=== PATIENT | male | born 1970 | race Caucasian/White ===

== ENCOUNTER 2021-03-09 00:12 | Emergency (ER) | payer SELFPAY | END 2021-03-09 07:05 | disposition left against medical advice (07) | LOC: ER 00:12 | DX: M25.569 Pain in unspecified knee (principal); Z53.21 Procedure and treatment not carried out due to patient leaving prior to being seen by health care provider ==

== ENCOUNTER 2021-03-09 08:29 | Emergency (ER) | payer SELFPAY ==
[~2021-03-09] VITALS: Ht 175.3 cm; Wt 70.4 kg
[2021-03-09] MEDS ORDERED: IBUPROFEN 400 MG TABLET. PO ONE (09:15)
[2021-03-09] MEDS ORDERED: ACETAMINOPHEN 500 MG TABLET PO ONE (09:15)
[2021-03-09 09:30] VITALS: BP 146/88
--- NOTE | 2021-03-09 09:30 | PHYS DOC ---
Past Medical History Additional Past Medical Histor: Darier disease, brain tumor Past Surgical History: Other Additional Past Surgical Histo: dental, finger, cyst removal Adult General Chief Complaint Chief Complaint: KNEE INJURY HPI HPI The patient is a 51-year-old undomiciled male who presents for evaluation of chronic left knee discomfort anteriorly. States the knee has been bothering him ever since he fell on it about 3 weeks ago. It sounds like he has been repeatedly evaluated at multiple hospitals for this issue with studies including imaging. He is in no distress, ambulatory with a narrow, steady gait and vital signs are appropriate here aside from elevated blood pressure. Patient was last seen for his knee discomfort last evening at . Review of Systems Review of Systems A 12 point review of systems was completed and was negative except where noted in HPI above. Current Medications Current Medications Current Medications Medications (Trade) Dose Ordered Sig/Harlan Start Time Stop Time Status Last Admin Dose Admin Acetaminophen (Tylenol) 1,000 mg 1X ONCE 03/09/21 09:15 03/09/21 09:16 DC Ibuprofen (Motrin) 800 mg 1X ONCE 03/09/21 09:15 03/09/21 09:16 DC Allergies Allergies Allergies Coded Allergies Type Severity Reaction Last Updated Verified No Known Drug Allergies 03/09/21 No Physical Exam Physical Exam 51-year-old male appearing nontoxic and in no acute distress. Head is normocephalic and atraumatic. Neck is supple and nontender. Oropharynx is moist. Lungs are clear to auscultation at all stations. There is a normal S1 and S2 without rubs or gallops and capillary refill is appropriate, less than 2 seconds globally. Abdomen is soft, nontender nondistended. Skin is warm and dry without cyanosis, clubbing or edema. Psychiatrically, the patient demonstrates appropriate mood and affect and is alert. Evaluation of the extremities reveals BUEs and BLEs neurovascularly intact distally with strength 5 out of 5, sensation intact light touch in all nerve distributions, radial, DP and PT pulses 2+ and equal bilaterally, capillary refill less than 2 seconds, hands and feet warm and well-perfused. No dependent peripheral edema distally. No calf tenderness or swelling bilaterally. Homans test is negative bilaterally. There are chronic changes of venous stasis to the bilateral shins without surrounding erythema, warmth, swelling or tenderness. Current Patient Data Vital Signs Vital Signs Date Time Temp Pulse Resp B/P (MAP) Pulse Ox O2 Delivery O2 Flow Rate FiO2 03/09/21 08:35 98.1 67 20 175/90 (118) 100 Room Air 98.1 EKG EKG [] Radiology/Procedures Radiology/Procedures [] Course & Med Decision Making Course & Med Decision Making No evidence of emergency medical condition is identified. Will administer ibuprofen and Tylenol for discomfort and discharged with a plan for rest, ice, elevation and scheduled anti-inflammatories. Patient is to follow-up with primary in the next 2 to 4 days and understands that if he feels worse instead of better or develops other new symptoms of concern that he will need to return to the emergency department immediately for reevaluation. All questions are answered. Dragon Disclaimer Dragon Disclaimer This electronic medical record was generated, in whole or in part, using a voice recognition dictation system. Departure Departure Impression: Primary Impression: Chronic pain of left knee Disposition: HOME / SELF CARE / HOMELESS Condition: STABLE Patient Instructions: Knee Pain Additional Instructions: Follow-up very closely with your primary care doctor in the office in the next 2 to 4 days for reevaluation of your symptoms and to discussion of next best steps in care. Take ibuprofen as needed for discomfort. Rest, ice and elevate your knee. Return to the emergency department right away for worsening symptoms of any kind or with any other new symptoms of concern. JOSE MEHTA MD Mar 09, 2021 09:30
== END 2021-03-09 09:50 | disposition home or self-care (01) ==
LOC: ER 08:29
DX: M25.562 Pain in left knee (principal); G89.29 Other chronic pain; G89.11 Acute pain due to trauma; W18.39XA Other fall on same level, initial encounter; Y93.89 Activity, other specified; Y92.89 Other specified places as the place of occurrence of the external cause; Y99.8 Other external cause status
CPT/HCPCS: 99283